=== PATIENT | female | born 1995 | race African-American/Black ===

== ENCOUNTER → 2021-07-27 | Outpatient (CLI) | payer MEDICAID ==
--- NOTE | 2021-07-27 13:55 | KCIC ---
EXAM: Bilateral breast sonogram. HISTORY: 25-year-old female presents with bilateral breast pain and lumps. TECHNIQUE: Sonographic imaging of both breast targeted to sites of reported pain and lumps was perfor med. COMPARISON: None. FINDINGS: There is no suspicious sonographic finding within either breast. There is no mass, abnormal blood flow or posterior shadowing. There are benign axillary lymph nodes. IMPRESSION: 1. No suspicious sonographic finding. 2. BI-RADS Category 2: Benign finding(s). Continued clinical follow-up of palpable abnormalities is r ecommended. Negative imaging should not preclude the decision to biopsy a palpable abnormality if the re is continuing concern. Electronically signed by: Tahira Kerr MD (07/27/2021 1:53 PM) [id number]
== END ==
LOC: KCIC MAMMO 12:56
PROVIDERS: ATTEND Obstetrics & Gynecology
DX: N63.10 Unspecified lump in the right breast, unspecified quadrant (principal); N63.20 Unspecified lump in the left breast, unspecified quadrant; Z01.419 Encounter for gynecological examination (general) (routine) without abnormal findings
CPT/HCPCS: 76641